=== PATIENT | male | born 1980 | race Caucasian/White ===

== ENCOUNTER 2017-06-11 08:50 | Emergency (ER) | payer SELFPAY ==
[~2017-06-11] VITALS: Ht 177.8 cm; Wt 72.6 kg
--- NOTE | 2017-06-11 09:00 | NUR ---
PATIENT TO ED COUGH CONGESTION BODY PAIN X2 WEEKS NAUSEA VOMITING X4 TODAY. PATIENT RECEIVED AAO4. APPEARS IN NO APPRENT DISTRESS. PT VOMITTED X 1 IN ED. PT IS AFEBRILE. VSS. PENDING MD CARRERA
--- NOTE | 2017-06-11 09:00 | NUR ---
IV ACCESS STARTED. BLOOD DRAWN FOR LABS. MEDICATED ORDERED.
[2017-06-11] MEDS ORDERED: ONDANSETRON HCL/PF 4 MG/2 ML VIAL ONE (09:27)
[2017-06-11] MEDS ORDERED: ONDANSETRON HCL/PF 4 MG/2 ML VIAL IV ONE (09:30)
[2017-06-11] MEDS ORDERED: IV NS 0.9% 1,000 ML BAG IV ONE (09:30)
[2017-06-11 09:45] LABS: BASOPHILS # (AUTO) 0.2 /CMM (0.0-0.2); LYMPHOCYTES % (AUTO) 8.1 % (20.0-44.0); MONOCYTES # (AUTO) 0.6 /CMM (0.1-1.30)
[2017-06-11 09:48] LABS: EOSINOPHILS # (AUTO) 0.4 /CMM (0.0-0.7); EOSINOPHILS % (AUTO) 2.5 % (0.0-6.0); HEMATOCRIT 50 % (39-51); LYMPHOCYTES # (AUTO) 1.3 /CMM (0.8-4.8); MEAN CORPUSCULAR HEMOGLOBIN 29 PG (26.0-33.0); MEAN CORPUSCULAR HGB CONC 34 g/dl (31.0-36.0); MEAN CORPUSCULAR VOLUME 84 fL (80-96); MONOCYTES % (AUTO) 3.4 % (2.0-12.0); NEUTROPHILS # (AUTO) 13.8 /CMM (1.8-8.9); PLATELET COUNT (AUTO) 271 /CMM (150-450); RDW COEFFICIENT OF VARIATION 13.3 (11.5-15.0); RED BLOOD CELL COUNT(AUTO) 5.94 MIL/uL (4.5-6.0); WHITE BLOOD COUNT (AUTO) 16.3 K/uL (4.3-11.0)
[2017-06-11 09:54] LABS: CALCIUM, SERUM 9.5 mg/dL (8.5-10.1); POTASSIUM 4.2 mmol/L (3.5-5.1)
[2017-06-11 09:59] LABS: ALBUMIN 4.6 g/dL (3.4-5.0); BILIRUBIN,TOTAL 0.4 mg/dL (0.2-1.0); TOTAL PROTEIN, SERUM 8.4 g/dL (6.4-8.2)
--- NOTE | 2017-06-11 11:19 | NUR ---
IV removed. Catheter intact and site benign. Pressure and 4x4 applied to site. No bleeding noted.Patient discharged to home in stable condition. Written and verbal after care instructions given. Patient verbalizes understanding of instruction.
[2017-06-11 11:20] VITALS: BP 130/80
== END 2017-06-11 11:20 | disposition home or self-care (01) ==
LOC: ER 08:54
DX: R11.10 Vomiting, unspecified (principal); E86.0 Dehydration; R19.7 Diarrhea, unspecified; K21.9 Gastro-esophageal reflux disease without esophagitis; F17.200 Nicotine dependence, unspecified, uncomplicated
CPT/HCPCS: 36415; 80053; 83690; 85025; 96361; 96374; 99284; A4606; J2405; J7030; Z7610

== ENCOUNTER 2020-02-13 15:09 | Emergency (ER) | payer SELFPAY ==
[~2020-02-13] VITALS: Ht 172.7 cm; Wt 61.7 kg
--- NOTE | 2020-02-13 15:20 | NUR ---
DYSURIA, HEMATURIA NOTED 3 TIMES STARTED AT NOON. DENIES ANY TRAUMA. PATIENT A/OX4, BREATHING EVEN AND UNLABORED, NO SOB NOTED, NEEDS ATTENDED. KEPT COMFORTABLE. URINE SAMPLE PROVIDED BY PATIENT.
[2020-02-13 16:27] LABS: APPEARANCE,URINE CLEAR (CLEAR); BILIRUBIN,URINE SMALL (NEGATIVE); BLOOD, URINE LARGE Ery/uL (NEGATIVE); COLOR,URINE YELLOW (YELLOW); KETONES,URINE 15 (NEGATIVE); LEUKOCYTE ESTERASE ,URINE SMALL (NEGATIVE); NITRITE, URINE POSITIVE (NEGATIVE); PROTEIN,URINE 100 mg/dl (NEGATIVE); UGLUCOSE NEGATIVE (NEGATIVE)
[2020-02-13 16:37] LABS: RBC,URINE TOO NUMEROUS TO COUN /HPF (0-2)
[2020-02-13 16:38] LABS: BACTERIA,URINE Moderate /HPF (None Seen); SQUAMOUS EPITHELIAL CELL,UR Few /HPF (None Seen)
[2020-02-13] MEDS ORDERED: AZITHROMYCIN 250 MG TABLET ONE (16:50)
[2020-02-13] MEDS ORDERED: CEFTRIAXONE 500 MG VIAL ONE (16:50)
[2020-02-13] MEDS ORDERED: LIDOCAINE /MPF 1% VIAL 5 ML VIAL ONE (16:51)
[2020-02-13] MEDS ORDERED: AZITHROMYCIN 250 MG TABLET PO ONE (17:00)
[2020-02-13] MEDS ORDERED: CEFTRIAXONE 500 MG VIAL IM ONE (17:00)
[2020-02-13 17:11] VITALS: BP 136/89
== END 2020-02-13 17:11 | disposition home or self-care (01) ==
LOC: ER 15:18
DX: N39.0 Urinary tract infection, site not specified (principal); R30.0 Dysuria; R31.9 Hematuria, unspecified; K21.9 Gastro-esophageal reflux disease without esophagitis; Z11.3 Encounter for screening for infections with a predominantly sexual mode of transmission
CPT/HCPCS: 81001; 87086; 87491; 87591; 96372; 99283; J0696; J3490; 81000-TC; 87186-TC

== ENCOUNTER 2020-03-05 09:37 | Emergency (ER) | payer SELFPAY ==
[~2020-03-05] VITALS: Ht 172.7 cm; Wt 59.9 kg
--- NOTE | 2020-03-05 09:48 | NUR ---
CAME IN FOR DYSURIA X 1 MONTH. R FLANK PAIN X 3 DAYS. TO ER BED 10, HOOKED TO MONITOR, CHANGED TO HOSP GOWN, WARM BLANKET PROVIDED, PATIENT AAO x 4, BREATHING EVEN AND UNLABORED. AWAITING MD CARRERA
[2020-03-05] MEDS ORDERED: KETOROLAC TROMETHAMINE INJ 30 MG/ML VIAL IM ONE (10:00)
[2020-03-05] MEDS ORDERED: KETOROLAC TROMETHAMINE 15 MG/ML VIAL ONE (10:03)
--- NOTE | 2020-03-05 10:07 | NUR ---
PATIENT NOT ABLE TO PROVIDE URINE SAMPLE. MD MITCHELL
--- NOTE | 2020-03-05 10:35 | NUR ---
URINE SAMPLE COLLECTED AND SENT TO LAB.
[2020-03-05 10:38] LABS: BASOPHILS % (AUTO) 0.3 % (0.0-2.0); EOSINOPHILS % (AUTO) 0.5 % (0.0-6.0); HEMATOCRIT 47 % (39-51); HEMOGLOBIN 15.8 g/dL (13.5-17.5); LYMPHOCYTES # (AUTO) 1.5 /CMM (0.8-4.8); MEAN CORPUSCULAR HGB CONC 34 g/dl (31.0-36.0); MEAN CORPUSCULAR VOLUME 86 fL (80-96); MONOCYTES # (AUTO) 0.6 /CMM (0.1-1.30); MONOCYTES % (AUTO) 4.3 % (2.0-12.0); NEUTROPHILS # (AUTO) 11.3 /CMM (1.8-8.9); NEUTROPHILS % (AUTO) 83.9 % (43.0-81.0); PLATELET COUNT (AUTO) 274 /CMM (150-450); RED BLOOD CELL COUNT(AUTO) 5.48 MIL/uL (4.5-6.0); WHITE BLOOD COUNT (AUTO) 13.4 K/uL (4.3-11.0)
[2020-03-05 10:42] LABS: APPEARANCE,URINE Clear (CLEAR); BILIRUBIN,URINE Negative (NEGATIVE); BLOOD, URINE Trace-intact Ery/uL (NEGATIVE); COLOR,URINE Yellow (YELLOW); KETONES,URINE Negative (NEGATIVE); LEUKOCYTE ESTERASE ,URINE Small (NEGATIVE); NITRITE, URINE Negative (NEGATIVE); PH,URINE 8.5 (5.0-8.0); PROTEIN,URINE Negative (NEGATIVE); UGLUCOSE Negative (NEGATIVE); UROBILINOGEN,URINE 0.2 EU/dL (0.2)
[2020-03-05 10:44] LABS: BACTERIA,URINE Few /HPF (None Seen); SQUAMOUS EPITHELIAL CELL,UR Rare /HPF (None Seen)
[2020-03-05 10:50] LABS: CALCIUM, SERUM 9.4 mg/dL (8.5-10.1); POTASSIUM 3.8 mmol/L (3.5-5.1)
[2020-03-05 10:55] LABS: ALBUMIN 3.9 g/dL (3.4-5.0); BILIRUBIN,DIRECT 0.1 mg/dL (0.0-0.2); BILIRUBIN,TOTAL 0.5 mg/dL (0.2-1.0); TOTAL PROTEIN, SERUM 7.5 g/dL (6.4-8.2)
[2020-03-05] MEDS ORDERED: CEFTRIAXONE 1GM BAG (ER ONLY) 50 ML IV ONE (11:53)
[2020-03-05] MEDS ORDERED: CEFTRIAXONE 1GM BAG (ER ONLY) 1 GM/50 ML PIGGYBACK IV ONE (12:00)
[2020-03-05 12:48] VITALS: BP 127/71
== END 2020-03-05 12:48 | disposition home or self-care (01) ==
LOC: ER 09:42
DX: N20.0 Calculus of kidney (principal); K21.9 Gastro-esophageal reflux disease without esophagitis
CPT/HCPCS: 36415; 74176; 80048; 80076; 81001; 83690; 85025; 87077; 87086; 87186; 96365; 96372; 99284; J0696; J1885; 81000-TC

== ENCOUNTER 2020-03-22 07:53 | Emergency (ER) | payer SELFPAY ==
[~2020-03-22] VITALS: Ht 170.2 cm; Wt 74.8 kg
[2020-03-22] MEDS ORDERED: ONDANSETRON HCL/PF 4 MG/2 ML VIAL ONE (08:14)
[2020-03-22] MEDS ORDERED: HYDROMORPHONE 1 MG/1 ML DISP.SYRIN ONE (08:14)
--- NOTE | 2020-03-22 08:24 | NUR ---
PT R EC'D TO ER C/O ABD PAIN 3 TIME HERE AT ER HAD UTI UA SENT TO LAB IV STARTED RT AC 20G LABS SENT TO LAB PT CRYING IN PAIN 10/10 MEDS DILAUDID 1 MG IVP AND FLUID ZOFRAN 4 MG IVP NOW PER MD ORDER
--- NOTE | 2020-03-22 08:25 | NUR ---
PT SENT TO CT
[2020-03-22] MEDS ORDERED: ONDANSETRON HCL/PF 4 MG/2 ML VIAL IVP ONE (08:30)
[2020-03-22] MEDS ORDERED: IV NS 0.9% 1,000 ML BAG IV ONE (08:30)
[2020-03-22] MEDS ORDERED: HYDROMORPHONE INJ 2 MG/ML DISP.SYRIN IV ONE (08:30)
[2020-03-22] MEDS ORDERED: CEFTRIAXONE 1GM BAG (ER ONLY) 50 ML IV ONE (08:40)
[2020-03-22] MEDS ORDERED: CEFTRIAXONE 1GM BAG (ER ONLY) 1 GM/50 ML PIGGYBACK IV ONE (09:00)
[2020-03-22 09:07] LABS: BASOPHILS % (AUTO) 0.4 % (0.0-2.0); EOSINOPHILS % (AUTO) 1.6 % (0.0-6.0); HEMATOCRIT 47 % (39-51); HEMOGLOBIN 16.2 g/dL (13.5-17.5); LYMPHOCYTES # (AUTO) 2.2 /CMM (0.8-4.8); LYMPHOCYTES % (AUTO) 24.1 % (20.0-44.0); MEAN CORPUSCULAR HGB CONC 34 g/dl (31.0-36.0); MEAN CORPUSCULAR VOLUME 85 fL (80-96); MONOCYTES # (AUTO) 0.3 /CMM (0.1-1.30); MONOCYTES % (AUTO) 3.1 % (2.0-12.0); NEUTROPHILS # (AUTO) 6.6 /CMM (1.8-8.9); NEUTROPHILS % (AUTO) 70.8 % (43.0-81.0); PLATELET COUNT (AUTO) 323 /CMM (150-450); WHITE BLOOD COUNT (AUTO) 9.3 K/uL (4.3-11.0)
[2020-03-22 09:17] LABS: ALBUMIN 4.5 g/dL (3.4-5.0); BILIRUBIN,DIRECT 0.1 mg/dL (0.0-0.2); BILIRUBIN,TOTAL 0.7 mg/dL (0.2-1.0); CREATININE 1.1 mg/dL (0.6-1.3); POTASSIUM 3.9 mmol/L (3.5-5.1); TOTAL PROTEIN, SERUM 7.9 g/dL (6.4-8.2)
[2020-03-22 10:24] LABS: APPEARANCE,URINE SL CLOUDY (CLEAR); BILIRUBIN,URINE NEGATIVE (NEGATIVE); BLOOD, URINE LARGE Ery/uL (NEGATIVE); COLOR,URINE YELLOW (YELLOW); KETONES,URINE 15 (NEGATIVE); LEUKOCYTE ESTERASE ,URINE NEGATIVE (NEGATIVE); NITRITE, URINE NEGATIVE (NEGATIVE); PH,URINE 8.5 (5.0-8.0); PROTEIN,URINE NEGATIVE (NEGATIVE); UGLUCOSE NEGATIVE (NEGATIVE); UROBILINOGEN,URINE 0.2 EU/dL (0.2)
[2020-03-22 10:27] VITALS: BP 134/70
--- NOTE | 2020-03-22 10:28 | NUR ---
IV removed. Catheter intact and site benign. Pressure and 4x4 applied to site. No bleeding noted.PT. VERBALIZED UNDERSTANDING OF AFTERCARE INSTRUCTIONS.
[2020-03-22 10:43] LABS: BACTERIA,URINE Rare /HPF (None Seen); SQUAMOUS EPITHELIAL CELL,UR Rare /HPF (None Seen)
[2020-03-22 10:44] LABS: RBC,URINE 81-100 /HPF (0-2)
== END 2020-03-22 10:29 | disposition home or self-care (01) ==
LOC: ER 07:57
DX: N13.2 Hydronephrosis with renal and ureteral calculous obstruction (principal); K21.9 Gastro-esophageal reflux disease without esophagitis
CPT/HCPCS: 36415; 74176; 80048; 80076; 81001; 83605; 83690; 85025; 87086; 96365; 96368; 96375; 99284; J0696; J1170; J2405; J7030; 81000-TC

== ENCOUNTER 2021-04-18 19:08 | Emergency (ER) | payer SELFPAY ==
[~2021-04-18] VITALS: Ht 172.7 cm; Wt 61.2 kg
--- NOTE | 2021-04-18 19:36 | NUR ---
BIB SELF C/O OF ONE EPISODE OF VOMITTING AT 1600 AND PERSISTENT [place] AND ABD PAIN SINCE 1600 WELL. PT STATES HE HAS BEEN TAKING ANTACID WITH MINIMAL RELIEF. STATES THAT IT FEELS LIKE "ACID OR KIDNEY STONE". PT PLACED IN A GOWN AND ON MONITOR ALL VITALS STABLE. MD WAS AT BEDSIDE FOR EVAL.
--- NOTE | 2021-04-18 19:49 | NUR ---
labor relations director at pt's bedside
[2021-04-18] MEDS ORDERED: KETOROLAC TROMETHAMINE INJ 30 MG/ML VIAL ONE (19:51)
[2021-04-18] MEDS ORDERED: ONDANSETRON HCL/PF 4 MG/2 ML VIAL ONE (19:51)
[2021-04-18 19:54] LABS: BASOPHILS # (AUTO) 0.1 K/uL (0.0-0.2); BASOPHILS % (AUTO) 0.5 % (0.0-2.0); EOSINOPHILS % (AUTO) 0.5 % (0.0-6.0); HEMATOCRIT 51 % (39-51); HEMOGLOBIN 17.1 g/dL (13.5-17.5); LYMPHOCYTES # (AUTO) 0.9 K/uL (0.8-4.8); LYMPHOCYTES % (AUTO) 6.6 % (20.0-44.0); MEAN CORPUSCULAR HGB CONC 34 g/dl (31.0-36.0); MEAN CORPUSCULAR VOLUME 86 fL (80-96); MONOCYTES # (AUTO) 0.5 K/uL (0.1-1.30); MONOCYTES % (AUTO) 3.4 % (2.0-12.0); NEUTROPHILS # (AUTO) 12.8 K/uL (1.8-8.9); PLATELET COUNT (AUTO) 265 K/uL (150-450); RED BLOOD CELL COUNT(AUTO) 5.94 MIL/uL (4.5-6.0); WHITE BLOOD COUNT (AUTO) 14.4 K/uL (4.3-11.0)
[2021-04-18] MEDS ORDERED: ONDANSETRON HCL/PF 4 MG/2 ML VIAL IVP ONE (20:00)
[2021-04-18] MEDS ORDERED: IV NS 0.9% 1,000 ML BAG IV ONE (20:00)
[2021-04-18] MEDS ORDERED: KETOROLAC TROMETHAMINE INJ 30 MG/ML VIAL IV ONE (20:00)
[2021-04-18 20:02] LABS: CALCIUM, SERUM 9.4 mg/dL (8.5-10.1); POTASSIUM 3.6 mmol/L (3.5-5.1)
--- NOTE | 2021-04-18 20:04 | NUR ---
COTTON PRESSER AT PT'S BEDSIDE
[2021-04-18 20:07] LABS: ALBUMIN 4.4 g/dL (3.4-5.0); BILIRUBIN,DIRECT 0.1 mg/dL (0.0-0.2); BILIRUBIN,TOTAL 0.4 mg/dL (0.2-1.0)
[2021-04-18] MEDS ORDERED: ONDA4TAB5 PO (21:20)
[2021-04-18] MEDS ORDERED: FAMOTIDINE (20 MG) 20 MG TABLET PO ONE (21:30)
[2021-04-18] MEDS ORDERED: OMEPRAZOLE 20 MG CAPSULE.DR PO ONE (21:30)
[2021-04-18] MEDS ORDERED: FAMOTIDINE (20 MG) 20 MG TABLET ONE (21:32)
--- NOTE | 2021-04-18 21:39 | NUR ---
Patient discharged to home in stable condition. RX, CXR, Written and verbal after care instructions given. Patient verbalizes understanding of instruction. PT ambulatory with a steady gait.
[2021-04-18 21:41] VITALS: BP 121/42
== END 2021-04-18 21:41 | disposition home or self-care (01) ==
LOC: ER 19:39
DX: A08.4 Viral intestinal infection, unspecified (principal); Z20.822 Contact with and (suspected) exposure to COVID-19; K21.9 Gastro-esophageal reflux disease without esophagitis
CPT/HCPCS: 36415; 71045; 80048; 80076; 83690; 85025; 87426; 96361; 96374; 96375; 99284; C9803; J1885; J2405; J7030

== ENCOUNTER 2021-11-04 04:35 | Emergency (ER) | payer OTHER ==
[~2021-11-04] VITALS: Ht 172.7 cm; Wt 61.2 kg
[~2021-11-04 04:35] MED LIST: ONDA4TAB5 PO
--- NOTE | 2021-11-04 04:50 | NUR ---
KE MICHELE AT BEDSIDE FOR EKG
--- NOTE | 2021-11-04 05:00 | NUR ---
TO ER BED 3. BIBS C/O MID STERNAL CHEST PAIN, NON RADIAITING, HEAVINESS 12/20 INTERMITENT X 1 WEEK. DENIES ANY N/V OR SOB. CONNECTED TO MONITOR. VSS. AWAITING MD CARRERA
[2021-11-04] MEDS ORDERED: MAG HYDROX/AL HYDROX/SIMETH 30 ML UDC ONE (05:06)
[2021-11-04] MEDS ORDERED: LIDOCAINE VISCOUS 2% UD 15 ML UDC ONE (05:07)
--- NOTE | 2021-11-04 05:20 | NUR ---
LAB AT BEDSIDE
[2021-11-04 05:30] LABS: BASOPHILS # (AUTO) 0.2 K/uL (0.0-0.2); EOSINOPHILS % (AUTO) 1.2 % (0.0-6.0); HEMATOCRIT 47 % (39-51); HEMOGLOBIN 15.7 g/dL (13.5-17.5); LYMPHOCYTES # (AUTO) 1.9 K/uL (0.8-4.8); LYMPHOCYTES % (AUTO) 31.4 % (20.0-44.0); MEAN CORPUSCULAR HGB CONC 33 g/dl (31.0-36.0); MEAN CORPUSCULAR VOLUME 84 fL (80-96); MONOCYTES # (AUTO) 0.4 K/uL (0.1-1.30); MONOCYTES % (AUTO) 5.9 % (2.0-12.0); NEUTROPHILS # (AUTO) 3.6 K/uL (1.8-8.9); NEUTROPHILS % (AUTO) 58.5 % (43.0-81.0); PLATELET COUNT (AUTO) 162 K/uL (150-450); RED BLOOD CELL COUNT(AUTO) 5.56 MIL/uL (4.5-6.0); WHITE BLOOD COUNT (AUTO) 6.2 K/uL (4.3-11.0)
[2021-11-04] MEDS ORDERED: LIDOCAINE VISCOUS 2% UD 15 ML UDC MM ONE (05:30)
[2021-11-04] MEDS ORDERED: MAG HYDROX/AL HYDROX/SIMETH 30 ML UDC PO ONE (05:30)
--- NOTE | 2021-11-04 05:38 | NUR ---
PT AMBULATED TO BATHROOM, STEADY GAIT NOTED.
--- NOTE | 2021-11-04 05:41 | NUR ---
XRAY AT BEDSIDE
[2021-11-04] MEDS ORDERED: LORAZEPAM 0.5 MG TABLET ONE (05:53)
[2021-11-04 06:00] LABS: CALCIUM, SERUM 9.5 mg/dL (8.5-10.1); CARBON DIOXIDE 25 mmol/L (21-32); CHLORIDE 104 mmol/L (98-107); GLUCOSE 116 mg/dL (74-106); POTASSIUM 3.8 mmol/L (3.5-5.1); SODIUM SERUM 140 mmol/L (136-145); UREA NITROGEN, BLOOD 15 mg/dL (7-18)
[2021-11-04] MEDS ORDERED: LORAZEPAM 1 MG TABLET PO ONE (06:00)
[2021-11-04] MEDS ORDERED: OMEP20CA15 PO (06:05)
--- NOTE | 2021-11-04 06:17 | NUR ---
Patient discharged to home in stable condition. Written and verbal after care instructions given. Patient verbalizes understanding of instruction.
[2021-11-04 06:18] VITALS: BP 126/81
== END 2021-11-04 06:18 | disposition home or self-care (01) ==
LOC: ER 04:37
DX: R07.89 Other chest pain (principal); K21.9 Gastro-esophageal reflux disease without esophagitis; F41.9 Anxiety disorder, unspecified; F17.200 Nicotine dependence, unspecified, uncomplicated; Z60.2 Problems related to living alone; Z79.899 Other long term (current) drug therapy
CPT/HCPCS: 36415; 71045-TC; 80048-TC; 84484-TC; 85025-TC

== ENCOUNTER 2022-11-08 09:11 | Emergency (ER) | payer OTHER ==
[~2022-11-08] VITALS: Ht 165.1 cm; Wt 61.2 kg
[~2022-11-08 09:11] MED LIST changes: +OMEP20CA15 PO
--- NOTE | 2022-11-08 09:22 | NUR ---
C/O LEFT SIDE RINGING IN EAR SINCE YESTERDAY. PT DENIES ANY TRAUMA TO AREA.
--- NOTE | 2022-11-08 09:25 | NUR ---
at bedside for eval
--- NOTE | 2022-11-08 09:50 | NUR ---
medicated as order
[2022-11-08] MEDS ORDERED: AMOXICILLIN TRIHYDRATE 250 MG CAPSULE ONE (09:54)
[2022-11-08] MEDS ORDERED: IBUPROFEN 600 MG TABLET ONE (09:54)
[2022-11-08] MEDS ORDERED: AMOX500T2 PO (09:54)
--- NOTE | 2022-11-08 09:58 | NUR ---
Patient discharged to home in stable condition. Written and verbal after care instructions given. Patient verbalizes understanding of instruction.
[2022-11-08 10:00] VITALS: BP 111/81
[2022-11-08] MEDS ORDERED: IBUPROFEN 600 MG TABLET PO ONE (10:00)
[2022-11-08] MEDS ORDERED: AMOXICILLIN TRIHYDRATE 500 MG CAPSULE PO ONE (10:00)
== END 2022-11-08 10:01 | disposition home or self-care (01) ==
LOC: ER 09:14
DX: H66.92 Otitis media, unspecified, left ear (principal); K21.9 Gastro-esophageal reflux disease without esophagitis; F17.200 Nicotine dependence, unspecified, uncomplicated; Z60.2 Problems related to living alone; Z79.899 Other long term (current) drug therapy

== ENCOUNTER 2023-06-09 19:47 | Emergency (ER) | payer SELFPAY ==
[~2023-06-09] VITALS: Ht 172.7 cm; Wt 65.8 kg
[~2023-06-09 19:47] MED LIST changes: +AMOX500T2 PO
[2023-06-09 20:31] VITALS: BP 120/82; TEMP 97.9; O2SAT 98
== END 2023-06-09 21:30 | disposition home or self-care (01) ==
LOC: ER 19:53
DX: J06.9 Acute upper respiratory infection, unspecified (principal); K21.9 Gastro-esophageal reflux disease without esophagitis; F17.200 Nicotine dependence, unspecified, uncomplicated; Z60.2 Problems related to living alone

== ENCOUNTER 2023-11-21 22:28 | Emergency (ER) | payer SELFPAY ==
[~2023-11-21] VITALS: Ht 170.2 cm; Wt 68.0 kg
[2023-11-21] MEDS ORDERED: diphenhydrAMINE HCL 50 MG/ML VIAL ONE (23:37)
[2023-11-21] MEDS: diphenhydrAMINE HCL 50 MG/ML VIAL IV ONE (23:38)
[2023-11-21 23:46] LABS: BASOPHILS % (AUTO) 0.6 % (0.0-2.0); EOSINOPHILS # (AUTO) 0.4 K/uL (0.0-0.7); EOSINOPHILS % (AUTO) 5.1 % (0.0-6.0); HEMATOCRIT 45 % (39-51); HEMOGLOBIN 15.5 g/dL (13.5-17.5); LYMPHOCYTES # (AUTO) 3.1 K/uL (0.8-4.8); MEAN CORPUSCULAR HEMOGLOBIN 29 PG (26.0-33.0); MEAN CORPUSCULAR HGB CONC 34 g/dl (31.0-36.0); MEAN CORPUSCULAR VOLUME 85 fL (80-96); MONOCYTES # (AUTO) 0.4 K/uL (0.1-1.30); MONOCYTES % (AUTO) 4.6 % (2.0-12.0); NEUTROPHILS # (AUTO) 4.7 K/uL (1.8-8.9); NEUTROPHILS % (AUTO) 53.7 % (43.0-81.0); PLATELET COUNT (AUTO) 230 K/uL (150-450); RED BLOOD CELL COUNT(AUTO) 5.31 MIL/uL (4.5-6.0); RED CELL DISTRIBUTION WIDTH 14.7 % (11.5-15.0); WHITE BLOOD COUNT (AUTO) 8.7 K/uL (4.3-11.0)
[2023-11-22 00:05] LABS: ALANINE AMINOTRANSFERASE 32 U/L (12-78); ALBUMIN 3.8 g/dL (3.4-5.0); ALCOHOL, BLOOD < 3 mg/dL (0-10); ALKALINE PHOSPHATASE 80 U/L (46-116); ASPARTATE AMINOTRANSFERASE 16 U/L (15-37); BILIRUBIN,TOTAL 0.3 mg/dL (0.2-1.0); CALCIUM, SERUM 9.2 mg/dL (8.5-10.1); CARBON DIOXIDE 25 mmol/L (21-32); CHLORIDE 106 mmol/L (98-107); GLUCOSE 127 mg/dL (74-106); NT-PRO BNP 20 pg/mL (0-125); POTASSIUM 3.7 mmol/L (3.5-5.1); SODIUM SERUM 141 mmol/L (136-145); TOTAL PROTEIN, SERUM 7.1 g/dL (6.4-8.2); UREA NITROGEN, BLOOD 14 mg/dL (7-18)
[2023-11-22] MEDS ORDERED: MAG HYDROX/AL HYDROX/SIMETH 30 ML UDC ONE (00:07)
[2023-11-22] MEDS: MAG HYDROX/AL HYDROX/SIMETH 30 ML UDC PO ONE (00:08)
[2023-11-22] MEDS ORDERED: DIPH50CA4 PO (01:15)
[2023-11-22 01:35] VITALS: BP 132/78; O2SAT 98
== END 2023-11-22 01:36 | disposition home or self-care (01) ==
LOC: ER 22:29
DX: F41.9 Anxiety disorder, unspecified (principal); T42.4X5A Adverse effect of benzodiazepines, initial encounter; K21.9 Gastro-esophageal reflux disease without esophagitis; F17.200 Nicotine dependence, unspecified, uncomplicated; Z60.2 Problems related to living alone; Z79.899 Other long term (current) drug therapy; Y92.89 Other specified places as the place of occurrence of the external cause
CPT/HCPCS: 99284; 96374; 93005; 85025; 36415; 80053; 84484; 83880; 80320; J1200; G0480

== ENCOUNTER 2024-03-14 19:25 | Emergency (ER) | payer SELFPAY ==
[~2024-03-14] VITALS: Ht 175.3 cm; Wt 63.5 kg
[~2024-03-14 19:25] MED LIST changes: +DIPH50CA4 PO
[2024-03-14 22:09] LABS: BASOPHILS % (AUTO) 0.2 % (0.0-2.0); EOSINOPHILS % (AUTO) 0.1 % (0.0-6.0); HEMATOCRIT 47 % (39-51); HEMOGLOBIN 15.9 g/dL (13.5-17.5); LYMPHOCYTES # (AUTO) 0.8 K/uL (0.8-4.8); LYMPHOCYTES % (AUTO) 5.8 % (20.0-44.0); MEAN CORPUSCULAR HEMOGLOBIN 29 PG (26.0-33.0); MEAN CORPUSCULAR HGB CONC 34 g/dl (31.0-36.0); MEAN CORPUSCULAR VOLUME 85 fL (80-96); MONOCYTES # (AUTO) 0.3 K/uL (0.1-1.30); MONOCYTES % (AUTO) 2.6 % (2.0-12.0); NEUTROPHILS % (AUTO) 91.3 % (43.0-81.0); PLATELET COUNT (AUTO) 203 K/uL (150-450); RED BLOOD CELL COUNT(AUTO) 5.57 MIL/uL (4.5-6.0); RED CELL DISTRIBUTION WIDTH 14.2 % (11.5-15.0); WHITE BLOOD COUNT (AUTO) 13.2 K/uL (4.3-11.0)
[2024-03-14 22:16] LABS: CALCIUM, SERUM 9.7 mg/dL (8.5-10.1); POTASSIUM 3.9 mmol/L (3.5-5.1)
[2024-03-14 22:28] LABS: ALBUMIN 4.5 g/dL (3.4-5.0); BILIRUBIN,TOTAL 0.5 mg/dL (0.2-1.0); TOTAL PROTEIN, SERUM 7.4 g/dL (6.4-8.2)
[2024-03-15] MEDS: MAG HYDROX/AL HYDROX/SIMETH 30 ML UDC PO ONE (00:05)
[2024-03-15] MEDS ORDERED: MAG HYDROX/AL HYDROX/SIMETH 30 ML UDC ONE (00:05)
[2024-03-15] MEDS ORDERED: LIDOCAINE VISCOUS 2% UD 15 ML UDC ONE (00:05)
[2024-03-15] MEDS: LIDOCAINE VISCOUS 2% UD 15 ML UDC PO ONE (00:05)
[2024-03-15] MEDS ORDERED: AZIT250T PO (00:39)
[2024-03-15 01:02] VITALS: BP 115/74; TEMP 98.7; O2SAT 97
== END 2024-03-15 01:03 | disposition home or self-care (01) ==
LOC: ER 19:27
DX: J06.9 Acute upper respiratory infection, unspecified (principal); R09.89 Other specified symptoms and signs involving the circulatory and respiratory systems; K21.9 Gastro-esophageal reflux disease without esophagitis; F17.200 Nicotine dependence, unspecified, uncomplicated; Z79.899 Other long term (current) drug therapy; Z60.2 Problems related to living alone; Z20.822 Contact with and (suspected) exposure to COVID-19
CPT/HCPCS: 36415; 71045-TC; 80053-TC; 83690-TC; 83880; 84484-TC; 85025-TC

== ENCOUNTER 2024-07-13 03:59 | Emergency (ER) | payer MEDICAID ==
[~2024-07-13] VITALS: Ht 172.7 cm; Wt 63.5 kg
[~2024-07-13 03:59] MED LIST changes: +AZIT250T PO
[2024-07-13] MEDS ORDERED: KETOROLAC TROMETHAMINE INJ 30 MG/ML VIAL ONE (04:46)
[2024-07-13] MEDS ORDERED: ONDANSETRON HCL/PF 4 MG/2 ML VIAL ONE (04:46)
[2024-07-13] MEDS: ONDANSETRON HCL/PF - ER 4 MG/2 ML VIAL IV ONE (04:49)
[2024-07-13] MEDS: KETOROLAC TROMETHAMINE INJ 30 MG/ML VIAL IV ONE (04:49)
[2024-07-13 04:55] LABS: BASOPHILS # (AUTO) 0.1 K/uL (0.0-0.2); BASOPHILS % (AUTO) 0.8 % (0.0-2.0); EOSINOPHILS # (AUTO) 0.4 K/uL (0.0-0.7); EOSINOPHILS % (AUTO) 4.2 % (0.0-6.0); HEMATOCRIT 46 % (39-51); HEMOGLOBIN 15.9 g/dL (13.5-17.5); LYMPHOCYTES # (AUTO) 3.2 K/uL (0.8-4.8); LYMPHOCYTES % (AUTO) 37.8 % (20.0-44.0); MEAN CORPUSCULAR HEMOGLOBIN 30 PG (26.0-33.0); MEAN CORPUSCULAR HGB CONC 34 g/dl (31.0-36.0); MEAN CORPUSCULAR VOLUME 86 fL (80-96); MONOCYTES # (AUTO) 0.3 K/uL (0.1-1.30); NEUTROPHILS # (AUTO) 4.6 K/uL (1.8-8.9); NEUTROPHILS % (AUTO) 54.2 % (43.0-81.0); PLATELET COUNT (AUTO) 234 K/uL (150-450); RED BLOOD CELL COUNT(AUTO) 5.39 MIL/uL (4.5-6.0); RED CELL DISTRIBUTION WIDTH 14.4 % (11.5-15.0); WHITE BLOOD COUNT (AUTO) 8.6 K/uL (4.3-11.0)
[2024-07-13 05:00] LABS: ALBUMIN 4.2 g/dL (3.4-5.0); BILIRUBIN,TOTAL 0.3 mg/dL (0.2-1.0); CALCIUM, SERUM 9.4 mg/dL (8.5-10.1); CREATININE 0.9 mg/dL (0.6-1.3); TOTAL PROTEIN, SERUM 7.5 g/dL (6.4-8.2)
[2024-07-13] MEDS ORDERED: KETO10TA2 PO (05:33)
[2024-07-13] MEDS ORDERED: TAMS-12 PO (05:33)
[2024-07-13 05:43] VITALS: BP 135/90; TEMP 98; O2SAT 98
[2024-07-13 06:41] LABS: APPEARANCE,URINE TURBID (CLEAR); BILIRUBIN,URINE 2+ (NEGATIVE); BLOOD, URINE 3+ Ery/uL (NEGATIVE); COLOR,URINE DARK YELLOW (YELLOW); KETONES,URINE TRACE mg/dL (NEGATIVE); LEUKOCYTE ESTERASE ,URINE NEGATIVE (NEGATIVE); NITRITE, URINE POSITIVE (NEGATIVE); PH,URINE 6.5 (5.0-8.0); PROTEIN,URINE 2+ mg/dl (NEGATIVE); UGLUCOSE TRACE mg/dL (NEGATIVE)
[2024-07-13 06:45] LABS: ADD URINE CULTURE YES; BACTERIA,URINE Moderate /HPF (None Seen); RBC,URINE 51-80 /HPF (0-2); SQUAMOUS EPITHELIAL CELL,UR Few /HPF (None Seen); WBC,URINE 21-50 /HPF (0-3)
[2024-07-13 06:48] LABS: AMPHETAMINE, URINE NEGATIVE (NEGATIVE); BARBITURATE, URINE NEGATIVE (NEGATIVE); BENZODIAZEPINE, URINE NEGATIVE (NEGATIVE); CANNABINOID, URINE NEGATIVE (NEGATIVE); COCCAINE, URINE NEGATIVE (NEGATIVE); OPIATE, URINE NEGATIVE (NEGATIVE); PHENCYCLIDINE SCREEN,URINE NEGATIVE (NEGATIVE)
== END 2024-07-13 05:44 | disposition home or self-care (01) ==
LOC: ER 04:13
DX: N20.0 Calculus of kidney (principal); Z79.899 Other long term (current) drug therapy; F17.200 Nicotine dependence, unspecified, uncomplicated; K21.9 Gastro-esophageal reflux disease without esophagitis; M43.17 Spondylolisthesis, lumbosacral region; Z87.442 Personal history of urinary calculi
CPT/HCPCS: 99285; 74176; 96374; 96375; 85025; 81001; 36415; 80053; 80307; J1885; J2405 ×2